=== PATIENT | male | born 1930 | race Asian ===

== ENCOUNTER 2019-02-16 01:14 | Emergency (ER) | payer MEDICARE, MEDICAID ==
[~2019-02-16] VITALS: Ht 170.2 cm; Wt 77.0 kg
[2019-02-16] MEDS ORDERED: IPRATROPIUM BROMIDE (0.02%) 0.5MG/2.5ML NEB HHN STA (05:06)
[2019-02-16] MEDS ORDERED: ACETAMINOPHEN 325MG TABLET PO STA (05:06)
[2019-02-16] MEDS ORDERED: ALBUTEROL (0.083%) 2.5MG/3ML NEB HHN STA (05:06)
[2019-02-16] MEDS ORDERED: SODIUM CHLORIDE 0.9% 1000ML BAG (SEPSIS BOLUS) IV ONE (05:15)
[2019-02-16] MEDS ORDERED: METHYLPREDNISOLONE SOD SUCC 125 MG/2 ML VIAL IV STA (05:15)
[2019-02-16] MEDS ORDERED: LEVOFLOXACIN 750MG PREMIX 150 ML IV ONE (05:15)
[2019-02-16 05:36] LABS: BG BASE EXCESS -0.6 mmol/L (-2.0-2.0); BG CARBOXYHEMOGLOBIN 1.1 % (0.5-1.5); BG DEOXYHEMOGLOBIN 7.6 % (0.0-5.0); BG FRACTION INSPIRED OXYGEN 21; BG METHEMOGLOBIN 0.2 % (0.0-1.5); BG OXYGEN SATURATION 92.3 % (92.0-98.5); BG OXYHEMOGLOBIN 91.1 % (94.0-97.0); BG PCO2 39.2 mmHg (35.0-45.0); BG PH 7.404 (7.350-7.450); BG PO2 62.5 mmHg (75.0-100.0); BG SAMPLE SITE RIGHT RADIAL; BG TOTAL HEMOGLOBIN 14.1 g/dL (12.0-18.0); BG VENT MODE ROOM AIR
[2019-02-16 05:43] LABS: HEMATOCRIT. 43.7 % (42.0-52.0); HEMOGLOBIN. 14.2 g/dL (14.0-18.0); MEAN CORPUSCULAR HEMOGLOBIN 27.4 pg (28.0-32.0); MEAN CORPUSCULAR VOLUME 84.1 fL (80.0-94.0); MEAN PLATELET VOLUME 9.9 fl (7.4-10.4); PLATELET 140 x1000/uL (130-400); RED CELL DISTRIBUTION WIDTH 13.6 % (11.6-14.6)
[2019-02-16 05:51] LABS: PROTHROMBIN TIME 10.7 sec (9.6-11.0)
[2019-02-16 05:52] LABS: CHLORIDE 108 mEq/L (98-107)
[2019-02-16 06:49] LABS: PLATELET ESTIMATE NORMAL
[2019-02-16 09:22] LABS: CLARITY URINE CLEAR (CLEAR); COLOR URINE YELLOW (YELLOW); KETONES URINE NEGATIVE (NEGATIVE); LEUKOCYTE ESTERASE URINE NEGATIVE (NEGATIVE); NITRITE URINE NEGATIVE (NEGATIVE); OCCULT BLOOD URINE NEGATIVE (NEGATIVE); PROTEIN URINE NEGATIVE (NEGATIVE); SPECIFIC GRAVITY URINE 1.015 (1.005-1.030)
[2019-02-16 11:25] VITALS: BP 124/68
== END 2019-02-16 11:54 | disposition left against medical advice (07) ==
LOC: ER 01:14 → EDBEDREQ 08:26 → EDBEDREQTM 08:26 → EDBEDREQSVC 08:26 → CANBEDREQ 11:36 → ER 11:54
DX: J18.9 Pneumonia, unspecified organism (principal); R09.02 Hypoxemia; R05 Cough; R50.9 Fever, unspecified; R06.2 Wheezing; E78.5 Hyperlipidemia, unspecified; I10 Essential (primary) hypertension; J44.9 Chronic obstructive pulmonary disease, unspecified; Z88.0 Allergy status to penicillin
CPT/HCPCS: 36415; 36600; 71045; 80053; 81003; 82375; 82805; 83605; 83880; 84145; 84484; 85025; 85610; 87040; 87086; 87804; 93005; 94640; 99284; J1956; J2930; J7611; J7030